=== PATIENT | female | born 2005 | race Hispanic/Latino ===

== ENCOUNTER 2023-02-09 15:11 | Emergency (ER) | payer OTHER ==
--- OUTSIDE RECORDS SUMMARY | 2023-02-09 15:17 | XMS REPORT | Continuity of Care Document ---
:2005 Author Organization [facility] t Address [address] [place] [address] [place] [id number] Care Team Providers Name Role Phone YANELIS TAY Primary Care Physician Unavailable YANELIS TAY Attending Clinician Unavailable CHUCKY SUTTON Attending Clinician Unavailable Alvaro Galeas MD Attending Clinician Chucky Sutton MD Attending Clinician [phone] FLORA PERDOMO Attending Clinician Unavailable Flora Perdomo NP Attending Clinician [phone] ALBERT MEANS Attending Clinician Unavailable YANELIS TAY Admitting Clinician Unavailable ALBERT MEANS Admitting Clinician Unavailable Payers Payer Name Policy Type Policy Number Effective Date Expiration Date S marly 2 C [id number] 2022 00:00:00 [employer] OON [id number] 2021 00:00:00 Problems This patient has no known problems. Allergies, Adverse Reactions, Alerts Allergy Allergy Status Severity Reaction(s) Onset Inactive Treating Comm ents Source Name Type Date Date Clinician Lamictal Drug Active U Not [place] Allergy Specified 8-20 lle 18:11: Memoria 41 l Lamictal Drug Active U Not [place] Allergy Specified 9-23 lle 21:02: Memoria 51 l No Known NA Active [place] Allergie 9-23 lle s 20:30: Memoria 19 l Divalpro Propensi Active Swelling [facility] adverse 00:00: Medical reaction 00 Center s DIVALPRO Allergy Active High Swelling [facility] Social History Social Habit Start Date Stop Date Quantity Comments Source History SDNJ [facility] Alcohol Std Drinks Medica l Center History SDOH [facility] Alcohol Binge Medical Sumi [facility] Alcohol intake 2022-04-06 2022-04-[address] [facility] 00:[facility]00 00:00:00 non-drinker Medical Cente r (finding) History SDOH 2021-02-26 2021-02-[address] [facility] Alcohol Frequency 00:00:00 00:00:00 Medical Center Tobacco use and 2021-02-26 2021-02-[address] [facility] exposure 00:00:00 00:00:00 non-user [facility] Sex Assigned At [address] [facility] 00:00:00 00:00:00 Medical [place] Smoking Status Start Date Stop Date Source Never smoked tobacco [facility] St ke s [facility] Medications Ordered Filled Start Stop Current Ordering Indication Dosage Frequency Signature Comments Components Source Medication Medication Date Date Medication? Clinician (SIG) Name Name ibuprofen 2021- No 400mg Take [address] [facility] (ADVIL,MOTR 04-06 tablet [facility] IN) 400 MG 00:00: 23:59 (400 mg Med ical tablet 00 :00 total) by Center mouth every 6 (six) hours as needed for Pain or Fever for up to 7 days. acetaminoph 2021- No 650mg Take [address] [facility] 04-06 tablets [facility] (TYLENOL) 00:00: 23:59 (650 mg Medi jimmie 325 MG 00 :00 total) by Center tablet mouth every 6 (six) hours as needed for Pain or Fever for up to 7 days. ethosuximid Yes GIVE [address] [facility] [facility] 6-15 CAPSULES [facility] (ZARONTIN) 00:00: BY MOUTH 2 M edical 250 mg 00 TIMES Center capsule DAILY. ethosuximid 2021- No 500mg Take [address] [facility] [facility] 3-16 06-27 mg by [facility] (ZARONTIN) 00:00: 00:00 mouth. Medi jimmie 250 mg 00 :00 Center capsule midazolam 2021-0 Yes 5mg 5 mg by [facility] S t (Nayzilam) 7-20 Nasal [facility] 5 mg/spray 00:00: route. Medic al (0.1 mL) 00 [place] Vital Signs Vital Name Observation Time Observation Value Comments Source HEIGHT 2022-04-06 18:13:00 167.6 cm WEIGHT 2022-04-06 18:13:00 53.661 kg HEIGHT 2022-04-06 18:13:00 167.6 cm WEIGHT 2022-04-06 18:13:00 53.661 kg HEIGHT 2022-03-15 12:40:00 167.6 cm WEIGHT 2022-03-15 12:40:00 53.524 kg HEIGHT 2022-03-15 12:40:00 167.6 cm WEIGHT 2022-03-15 12:40:00 53.524 kg HEIGHT 2021-02-26 18:53:00 167.6 cm WEIGHT 2021-02-26 18:53:00 52.345 kg Systolic blood 2022-04-06 20:59:00 112 mm[Hg] [facility] Diastolic blood 2022-04-06 20:59:00 70 mm[Hg] [facility] S t [facility] Heart rate 2022-04-06 20:59:00 75 /min [facility] Body temperature 2022-04-06 20:59:00 36.44 [facility] Respiratory rate 2022-04-06 20:59:00 18 /min [facility] Oxygen saturation in 2022-04-06 20:59:00 100 /min [facility] Arterial blood by Medical Ce nter Pulse oximetry Body height 2022-04-06 18:13:00 167.6 cm [facility] Body weight 2022-04-06 18:13:00 53.661 kg [facility] BMI 2022-04-06 18:13:00 19.09 kg/m2 [facility] Procedures Procedure Date / Time Performed Performing Clinician Sourc e XR CHEST PA OR AP 1 2022-04-06 19:06:00 Alvaro Galeas [facility] VIEW IN DEPT Medical Center COMPLETE METABOLIC 2022-04-06 19:00:[address] [facility] PANEL [facility] Medical Sumi [facility] CBC WITH INSTRUMENT 2022-04-06 19:00:[address] [facility] DIFF [facility] Medical [facility] er URINALYSIS - [facility] 2022-04-06 18:46:00 [facility] QUALITATIVE HCG - 2022-04-06 18:46:[address] [facility] STREP A - [facility] ED 2022-04-06 18:45:00 [facility] FLU A AND B - [facility] 2022-04-06 18:45:00 [facility] BRAIN WITHOUT IV 2022-03-15 00:51:[address] [facility] CONTRAST [facility] Plan of Care Planned Activity Planned Date Details Comments Source Future Scheduled 2024-01-29 DTAP/TDAP/TD VACCINES [facility] Test 00:00:00 (7 - Td or Tdap) Medical Sumi ter [code = DTAP/TDAP/TD VACCINES (7 - Td or Tdap)] Future Scheduled 2023-05-[address] [facility] Test 00:00:00 (Season Ended) [code Medical Center = INFLUENZA VACCINE (Season Ended)] Future Scheduled 2023-04-[address] [facility] Test 00:00:00 Counseling and Medical Cente r Screening (12+) [code = Tobacco Cessation Counseling and Screening (12+)] Future Scheduled 2022-09-[address] [facility] Test 00:00:00 (12+) [code = Medical Center DEPRESSION SCREENING (12+)] Future Scheduled 2021 HEPATITIS C SCREENING [facility] Test 00:00:00 [code = HEPATITIS C Medical Center SCREENING] Future Scheduled 2005 COVID-19 VACCINE (#1) [facility] Test 00:00:00 [code = COVID-[address] VACCINE (#1)] Encounters Start End Encounter Admission Attending Care Care Encounter Source Date/Time Date/Time Type Type Clinicians Facility Department ID 2022-05-08 2022-05-09 Emergency GINNY [id number] 23:07:00 02:28:00 Department E [id number] [facility] [id number] [facility] 2022-05-08 2022-05-08 Emergency 1 Gifty TAY ERS 22 [place] 18:07:00 21:28:00 YANELIS 0820 llsocorro Will l 2022-04-06 2022-04-06 Emergency ER [facility] Emergency [id number] [facility] 18:03:00 21:15:00 [place] 2022-04-06 2022-04-[address] [facility] [id number] 18:03:00 21:15:00 Chucky Sutton [facility] 2022-04-06 2022-04-06 Travel [facility] [id number] [facility] 00:00:00 00:00:00 [facility] 2022-03-15 2022-03-15 Emergency ER GREG, [facility] Emergency [id number] [facility] 12:30:00 13:11:00 [facility] 2022-03-15 2022-03-15 Emergency [facility], [facility] [id number] 12:30:00 13:11:00 [facility] 2022-03-15 2022-03-15 Travel [facility] [id number] [facility] 00:00:00 00:00:00 [facility] 2021-06-11 2021-06-11 Emergency 1 Gifty MEANS ERS 21 [place] 20:29:00 22:33:00 ALBERT 0923 nikki Will l 2021-02-26 2021-02-26 Emergency ER [facility] Emergency [id number] [facility] 18:34:00 18:34:00 Results Test Description Test Time Test Comments Results Result Sourc e Comments RAD, CHEST, PA OR 2022-04-06 Reason for AP, 1 VIEW 20:35:00 exam:->cough [facility] 2005 Sex: F FINAL REPORT TECHNIQUE: Frontal view of the chest. INDICATION: cough. COMPARISON: None. FINDINGS: LINES/TUBES: None. HEART AND MEDIASTINUM: Cardiomediastinal contour is within normal limits. LUNGS: The lungs are well inflated and clear. No consolidation or pulmonary edema. PLEURA: No pneumothorax. No significant pleural effusion. SOFT TISSUES AND BONES: Unremarkable. IMPRESSION:No acute cardiopulmonary process. Signed: Ventura Sandhu [facility] Verified Date/Time: 04/06/2022 20:35:10 , BRAIN, 2022-03-15 Unlisted Reason WITHOUT CONTRAST 12:57:00 for Exam - Click Yes and [facility] Below->No CENTERName: JAMIE NELSON : 2005 Sex: F FINAL REPORT CT, BRAIN, WITHOUT CONTRAST CLINICAL INDICATION: Headache, acute, normal neuro examHeadache, post traumaticDizziness, non-specific COMPARISON: None TECHNIQUE: Noncontrast axial CT imaging of the brain and skull. DOSE REDUCTION: Dose modulation, iterative reconstruction, and/or weight-based adjustment of the mA/kV was utilized to reduce the radiation dose to as low as reasonably achievable. FINDINGS:No intracranial hemorrhage, midline shift or mass effect. Midline structures are normally developed. No hydrocephalus. Orbits are within normal limits. No obstructive paranasal sinus disease. IMPRESSION: No acute intracranial findings If there is persistent clinical concern for intracranial pathology, MR examination is recommended for further characterization. Signed: Marcial Lopez Verified Date/Time: 03/15/2022 12:57:55 U/S, PELVIS, WITH 2021-02-26 Reason for ENDOVAG AND 20:54:00 exam:->ABDOMINA DOPPLER L PAIN lower [facility] 2005 Sex: F FINAL REPORT TECHNIQUE: Transabdominal and transvaginal grayscale ultrasound of the pelvis with color Doppler and spectral Doppler ultrasound of the ovaries. INDICATION: ABDOMINAL PAIN. COMPARISON: None. FINDINGS: UTERUS: The uterus is 6.7 x 2.7 x 4.0 cm. The endometrial echo complex thickness is 0.4 cm, within normal limits. OVARIES/ADNEXA: Right ovary has measurements of 3.9 x 2.3 x 2.1 cm and the left ovary has measurements of 2.9 x 2.0 x 2.2 cm. No ovarian mass.. Arterial and venous flow detected in both ovaries. PELVIS: No free fluid. IMPRESSION:Unremarkable ultrasound of the pelvis. Signed: Artur Lynn Verified Date/Time: 02/26/2021 20:54:07
[2023-02-09] MEDS ORDERED: NA CHLORIDE 0.9% 500 ML ONE (15:45)
[2023-02-09 15:58] LABS: Absolute Lymphocytes (CBC) 2.6 K/uL (0.7-4.9); Hematocrit 34.1 % (36.0-45.0); MPV 8.1 fL (7.6-11.3); RBC Red Blood Cell Count 3.79 M/uL (3.86-4.86)
[2023-02-09 16:39] LABS: Albumin 3.7 g/dL (3.4-5.0); Bilirubin Total 0.4 mg/dL (0.2-1.0)
--- NOTE | 2023-02-09 16:46 | RAD REPORT ---
EXAM DESCRIPTION: CT - Facial Bones W/ Mpr - 02/09/2023 4:05 pm CLINICAL HISTORY: Facial injury with pain COMPARISON: None TECHNIQUE: Computed axial tomography of the face was obtained. Coronal and sagittal reconstruction w as performed. All CT scans are performed using dose optimization technique as appropriate and may include automated exposure control or mA/KV adjustment according to patient size. FINDINGS: A fracture is not seen. A TMJ dislocation is not noted. The globes are intact. Fluid within the sinuses is not seen. IMPRESSION: Negative for a facial fracture.
--- NOTE | 2023-02-09 16:46 | RAD REPORT ---
EXAM DESCRIPTION: CT - Head Brain Wo Cont - 02/09/2023 4:05 pm CLINICAL HISTORY: Seizure with head injury COMPARISON: 2012 TECHNIQUE: Computed axial tomography of the head was obtained. IV contrast was not requested. All CT scans are performed using dose optimization technique as appropriate and may include automated exposure control or mA/KV adjustment according to patient size. FINDINGS: An intracranial bleed is not seen The ventricles are normal in caliber No extra-axial fluid collection is noted. No significant hypodensity within the brain noted Fluid within the sinuses/ mastoids is not seen. IMPRESSION: No acute intracranial abnormality is seen If patient's symptoms persist MRI of the brain would be recommended
[2023-02-09 16:49] LABS: Potassium 3.9 mEq/L (3.5-5.1)
--- NOTE | 2023-02-09 17:01 | ER ---
Nurse's Notes [facility] Name: Isa Marshall Age: 18 yrs Sex: Female : 2005 Arrival Date: 02/09/2023 Time: 15:11 Bed 7 Private MD: Diagnosis: Other seizures;Contusion of other part of head;Contusion of hand Presentation: 02/09 15:20 Chief complaint: Patient states: Had unwitnessed seizure [employer]. Found on ground in 1 parking lot of her job. Abrasions/pain to R side of face. Chief complaint: EMS states: VSS. 20 G L hand. Coronavirus screen: Vaccine status: Patient reports being unvaccinated. Client denies travel out of the [place] in the last 14 days. At this time, the client does not indicate any symptoms associated with coronavirus-19. Ebola Screen: Patient denies travel to an Ebola-affected area in the 21 days before illness onset. Initial Sepsis Screen: Does the patient meet any 2 criteria? No. Patient's initial sepsis screen is negative. Does the patient have a suspected source of infection? No. Patient's initial sepsis screen is negative. Risk Assessment: Do you want to hurt yourself or someone else? Patient reports no desire to harm self or others. Onset of symptoms was February 09, 2023. 15:20 Method Of Arrival: EMS: [place] [address] 15:20 Acuity: JORDAN 3 ll1 Triage Assessment: 15:22 General: Appears uncomfortable, Behavior is calm, cooperative, appropriate for age. ll1 Pain: Complains of pain in R side of face Quality of pain is described as aching. Neuro: Reports seizure [employer]. Derm: Reports abrasion R cheek area. Historical: - Allergies: 15:22 Unable to obtain; ll1 - PMHx: 15:22 Seizure; ll1 - PSHx: 15:22 None; ll1 - Immunization history:: Adult Immunizations up to date, Client reports having NOT received the Covid vaccine. - Social history:: Smoking status: Patient denies any tobacco usage or history of. Screenin:30 [facility] ED Fall Risk Assessment (Adult) History of falling in the last 3 months, bp including since admission No falls in past 3 months (0 pts). Abuse screen: Denies threats or abuse. Denies injuries from another. Nutritional screening: No deficits noted. Tuberculosis screening: No symptoms or risk factors identified. Assessment: 15:30 General: SEE TRIAGE NOTE. bp 16:20 Reassessment: Patient appears in no apparent distress at this time. No changes from kc6 previously documented assessment. Patient and/or family updated on plan of care and expected duration. Pain level reassessed. Patient is alert, oriented x 3, equal unlabored respirations, skin warm/dry/pink. 17:47 Reassessment: PT DC HOME AMBULATORY WITH FAMILY. bp Vital Signs: 15:20 BP 104 / 63; Pulse 86; Resp 16; Temp 98; Pulse Ox 100% ; Weight 52.16 kg; Height 5 ft. bp 7 in. ; Pain 5/10; 15:45 BP 108 / 74; Pulse 98; Resp 15; Pulse Ox 100% ; bp 16:22 Pulse 86; Resp 19 S; Pulse Ox 100% on R/A; kc6 17:47 BP 100 / 63; Pulse 84; Resp 16; Pulse Ox 100% ; bp 15:20 Body Mass Index 18.01 (52.16 kg, 170.18 cm) bp 15:20 Pain Scale: Adult bp ED Course: 15:20 Patient arrived in ED. kc6 15:20 Ayden Martin MD is Attending Physician. bs3 15:22 Triage completed. ll1 15:24 Maintain EMS IV. Dressing intact. Good blood return noted. Site clean \T\ dry. Gauge \T\ ll 1 site: 20 L hand. 15:30 Arm band placed on. bp 15:30 Patient has correct armband on for positive identification. Bed in low position. Call bp light in reach. Side rails up X2. Adult w/ patient. 15:31 Emma Gurrola, AUGIE is Primary Nurse. kc6 16:07 CT Head Brain wo Cont In Process Unspecified. EDMS 16:07 CT Facial Bones W/O Con In Process Unspecified. EDMS 16:45 Hand Left 3 View XRAY In Process Unspecified. EDMS 17:47 No provider procedures requiring assistance completed. IV discontinued, intact, bp bleeding controlled, No redness/swelling at site. Pressure dressing applied. Administered Medications: 15:49 Drug: NS 0.9% IV 500 ml Route: IV; Rate: bolus; Site: left hand; kc6 17:05 Drug: Ketorolac IVP 15 mg Route: IVP; Site: left hand; bp 17:47 Follow up: Response: No adverse reaction bp 17:05 Drug: Acetaminophen PO 1000 mg Route: PO; bp 17:47 Follow up: Response: No adverse reaction bp Medication: 15:30 VIS not applicable for this client. bp Outcome: 17:01 Discharge ordered by . bs3 17:47 Discharged to home ambulatory, with family. bp 17:47 Condition: stable 17:47 Discharge instructions given to patient, Instructed on discharge instructions, follow up and referral plans. Demonstrated understanding of instructions, follow-up care. 17:49 Patient left the ED. bp Signatures: Dispatcher [employer] EDMS Tommy Rodrigues RN RN bp Estrellita Machado RN RN ll1 Emma Gurrola RN RN kc6 Ayden Martin MD MD bs3 Corrections: (The following items were deleted from the chart) 15:52 15:20 52.16 kg; Height 5 ft. 7 in.; BMI: 18.0; Pain 5/10, Adult; ll1 bp
--- NOTE | 2023-02-09 17:02 | EDPHYS ---
Physician Documentation [facility] Name: Isa Marshall Age: 18 yrs Sex: Female : 2005 Arrival Date: 02/09/2023 Time: 15:11 Bed 7 Private MD: ED Physician Ayden Martin HPI: 02/09 15:45 This 18 yrs old Female presents to ER via EMS with complaints of Seizure and bs3 facial pain. 15:45 18-year-old female history of seizure disorder on valproate and ethosuximide presents bs3 with facial pain left hand pain and right hand pain after a seizure she did not eat all day and went to work and then finished work and was walking out and then remembers waking up in an ambulance per EMS she had witnessed seizure-like activity and did hit her face against concrete she now is complaining of facial pain but no other complaints she denies any recent illnesses she took her medications as prescribed. Historical: - Allergies: 15:22 Unable to obtain; ll1 - PMHx: 15:22 Seizure; ll1 - PSHx: 15:22 None; ll1 - Immunization history:: Adult Immunizations up to date, Client reports having NOT received the Covid vaccine. - Social history:: Smoking status: Patient denies any tobacco usage or history of. ROS: 15:45 Constitutional: Negative for fever, chills bs3 15:45 All other systems are negative. Exam: 15:45 Constitutional: This is a well developed, well nourished patient who is awake, alert, bs3 and in no acute distress. Head/Face: right cheek pain, left cheek pain, pain with opening and closing mouth, some bruising to right side of face Eyes: Pupils equal round and reactive to light, extra-ocular motions intact. Lids and lashes normal. ENT: mmm, no posterior phyarngeal erythema Chest/axilla: Normal chest wall appearance and motion. Nontender with no deformity. No lesions are appreciated. Cardiovascular: Regular rate and rhythm with a normal S1 and S2. symmetric pulses in upper extremities Respiratory: Lungs have equal breath sounds bilaterally, clear to auscultation, no respiratory distress Abdomen/GI: Soft, non-tender, no rebound or guarding Skin: Warm, dry with normal turgor. Normal color with no rashes, no lesions, and no evidence of cellulitis. MS/ Extremity: Pulses equal, no cyanosis. Neurovascular intact. Full, normal range of motion. Neuro: Awake and alert, GCS 15, oriented to person, place, time, and situation. Cranial nerves II-XII grossly intact. Motor strength 5/5 in all extremities. Sensory grossly intact. Psych: Awake, alert, with orientation to person, place and time. Behavior, mood, and affect are within normal limits. Vital Signs: 15:20 BP 104 / 63; Pulse 86; Resp 16; Temp 98; Pulse Ox 100% ; Weight 52.16 kg; Height 5 ft. bp 7 in. ; Pain 5/10; 15:45 BP 108 / 74; Pulse 98; Resp 15; Pulse Ox 100% ; bp 16:22 Pulse 86; Resp 19 S; Pulse Ox 100% on R/A; kc6 17:47 BP 100 / 63; Pulse 84; Resp 16; Pulse Ox 100% ; bp 15:20 Body Mass Index 18.01 (52.16 kg, 170.18 cm) bp 15:20 Pain Scale: Adult bp MDM: 15:20 Patient medically screened. bs3 15:45 Data reviewed: vital signs, nurses notes. ED course: pt with likely seizure, will r/o bs3 fractures, ich, hand fx,electrolyte abnormality, will do serial exams, will order valproate level, pt followed closely by neuro, last seizure last summer, advised outpatient f/u, return for seizure like activity. . 16:59 ED course: workup neg, pt still with mild headache, likely related to trauma, xr bs3 negative for acute fx/dislocationa s interp by myself. 02/09 15:32 Order name: Valproic Acid (depakote); Complete Time: 16:52 bs3 02/09 15:32 Order name: CBC with Diff; Complete Time: 16:01 bs3 02/09 15:32 Order name: Comprehensive Metabolic Panel; Complete Time: 16:52 bs3 02/09 15:32 Order name: CT Head Brain wo Cont; Complete Time: 16:52 bs3 02/09 15:32 Order name: CT Facial Bones W/O Con; Complete Time: 16:52 bs3 02/09 15:45 Order name: Hand Left 3 View XRAY bs3 Administered Medications: 15:49 Drug: NS 0.9% IV 500 ml Route: IV; Rate: bolus; Site: left hand; kc6 17:05 Drug: Ketorolac IVP 15 mg Route: IVP; Site: left hand; bp 17:47 Follow up: Response: No adverse reaction bp 17:05 Drug: Acetaminophen PO 1000 mg Route: PO; bp 17:47 Follow up: Response: No adverse reaction bp Disposition Summary: 02/09/23 17:01 Discharge Ordered Location: Home bs3 Problem: new bs3 Symptoms: have improved bs3 Condition: Stable bs3 Diagnosis - Other seizures bs3 - Contusion of other part of head bs3 - Contusion of hand bs3 Followup: bs3 - With: Private Physician - When: 48 Hours - Reason: Re-evaluation by your physician Discharge Instructions: - Discharge Summary Sheet bs3 - Seizure, Adult bs3 - Contusion, [id number] bs3 - Concussion, Adult, [id number] bs3 Forms: - Medication Reconciliation Form bs3 - Thank You Letter bs3 - Antibiotic Education bs3 - Prescription Opioid Use bs3 Signatures: Dispatcher [employer] Tommy Mendiola, RN RN bp Estrellita Machado RN RN ll1 Emma Gurrola RN RN kc6 Ayden Martin MD MD bs3
[2023-02-09] MEDS ORDERED: ACETAMINOPHEN 500 MG TAB ONE (17:08)
[2023-02-09] MEDS ORDERED: KETOROLAC 30 MG/ML INJ ONE (17:09)
--- NOTE | 2023-02-09 18:07 | RAD REPORT ---
EXAM DESCRIPTION: RAD -Hand Left 3 View - 02/09/2023 4:43 pm CLINICAL HISTORY: Left hand pain status post injury FINDINGS: No fracture or dislocation is seen.
[2023-02-09 18:11] VITALS: TEMP 98; O2SAT 100
[2023-02-09 18:16] VITALS: BP 100/63
== END 2023-02-09 17:49 | disposition home or self-care (01) ==
LOC: ER 15:11
DX: G40.89 Other seizures (principal); S00.83XA Contusion of other part of head, initial encounter; S60.222A Contusion of left hand, initial encounter
CPT/HCPCS: 85025; 36415; 80164; 80053; 70450; 70486; 76377; 73130; J7040